=== PATIENT | male | born 1965 | race Two or more races ===

== ENCOUNTER 2022-07-25 10:03 | Emergency (ER) | payer MEDICAID ==
[~2022-07-25] VITALS: Ht 175.3 cm; Wt 73.5 kg
--- NOTE | 2022-07-25 10:17 | NUR ---
BIBS W/ C/O RIGHT SHOULDER PAIN, S/P SLIP AND FALL. 04/02. DENIES LOC. TO ER BED 10
--- NOTE | 2022-07-25 10:27 | NUR ---
PT CHANGED TO [facility]
[2022-07-25] MEDS ORDERED: KETOROLAC TROMETHAMINE INJ 60 MG/2 ML VIAL IM ONE ×2 (10:56→11:00)
--- NOTE | 2022-07-25 11:20 | NUR ---
RAD TAKEN XRAY AT BEDSIDE
[2022-07-25] MEDS ORDERED: IBUP-1955 PO (11:55)
[2022-07-25 11:59] VITALS: BP 132/85
--- NOTE | 2022-07-25 12:14 | NUR ---
Patient discharged to home in stable condition. Written and verbal after care instructions given. Patient verbalizes understanding of instruction.
== END 2022-07-25 12:15 | disposition home or self-care (01) ==
LOC: ER 11:07
DX: M25.511 Pain in right shoulder (principal); Z59.00 Homelessness unspecified
CPT/HCPCS: 99283; 96372; 73030; J1885